=== PATIENT | female | born 1970 | race Caucasian/White ===

== ENCOUNTER 2019-12-03 17:13 | Emergency (ER) | payer SELFPAY ==
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
[2019-12-03] MEDS ORDERED: Lactated Ringers 1,000 ML IV ONE (18:05)
--- NOTE | 2019-12-04 11:02 | CT ---
CT cervical spine Technique: Multiple axial sections through the cervical spine were obtained from above C1 inferiorly to the top of T2. Reconstructed sagittal and coronal images were reviewed. Findings: Disc space narrowing is noted at C3-4, C4-5, C5-6 and C6-7. Anterior osteophytes are seen at C3-4 through C5-6. Posterior osteophytes are noted at C3-4 through C5-6. Neural foramina are felt to be fairly well patent. No central canal stenosis is seen. No acute fracture or subluxation is appreciated. Impression: 1. Mild diffuse degenerative change. 2. Nothing acute is appreciated on CT study of the cervical spine. Diagnostic code #2 This report was dictated in MDT I agree with preliminary report from [facility], finalized on 12/03/19, 8:08 PM Central Daylight Time
--- NOTE | 2019-12-04 11:02 | CT ---
CT chest Technique: Multiple axial sections through the chest were obtained. Intravenous contrast was utilized. Comparison: No prior chest imaging is available. Findings: Mediastinum and hilar regions show no adenopathy or mass. Aorta shows no aneurysm. No mediastinal hematoma is seen. No hilar abnormalities are seen. No pericardial thickening is identified. Soft tissue nodule noted within the medial right lung base measuring 1.3 cm in size. There are negative Hounsfield unit measurements within this area compatible with fat. Lungs otherwise are clear. No pulmonary contusion is appreciated. No pleural effusions or pneumothorax are seen. Bone window settings were reviewed. No acute osseous finding is appreciated. Impression: 1. 1.3 cm nodule within the medial right lung base. This contains some fat and is felt compatible with a benign nodule. I believe no further follow-up is needed. 2. Other normal findings as noted above. Nothing acute is appreciated. Diagnostic code #2 This report was dictated in MDT I agree with preliminary report from [facility], finalized on 12/03/19, 8:[address] abdomen and pelvis Technique: Multiple axial sections were obtained from above the dome of the diaphragm inferiorly through the pubic symphysis. Intravenous contrast was utilized. No oral contrast has been given. Comparison: No prior abdominal imaging is available. Findings: Liver shows 3 small low density findings. Largest lesion is within the dome of the right lobe measuring 8 mm. These are nonspecific by Hounsfield unit measurements but most likely represent liver cysts. Spleen appears normal. Adrenal glands show no nodule. Surgical clips are seen from previous cholecystectomy. Kidneys show symmetric contrast enhancement. Cyst is noted within the mid right kidney measuring 1.6 cm. Aorta shows no aneurysm. No retroperitoneal adenopathy or mesenteric abnormalities are seen. Appendix is seen which is normal. No pelvic mass or adenopathy is noted. No free fluid or inflammatory change is seen within the abdomen or within the pelvis. Bone window settings were reviewed. Spondylitic defects are seen at L5-S1 with no spondylolisthesis being seen at this time. Fat-containing umbilical hernia is noted. No acute osseous finding is appreciated. Impression: 1. Findings as described above. 2. Nothing acute is appreciated on CT study of the abdomen and pelvis. Diagnostic code #2 This report was dictated in MDT I agree with preliminary report from [facility], finalized on 12/03/19, 8:14 PM Central Daylight Time
--- NOTE | 2019-12-04 12:49 | CT ---
Head CT Technique: Multiple axial sections through the brain were obtained. Intravenous contrast was not utilized. Comparison: No prior chest imaging is available. Findings: Ventricles along with basal cisterns and sulci over the convexities appear within normal limits for the patient's age. No abnormal parenchymal densities are seen. No evidence of intracranial hemorrhage. No midline shift or mass-effect is seen. Visualized mastoid sinuses and paranasal sinuses show nothing acute. No acute calvarial finding is seen. Impression: 1. Nothing acute is seen on noncontrast head CT study. Diagnostic code #1 This report was dictated in MDT I agree with preliminary report from [facility], finalized on 12/03/19, 8:04 PM Central Daylight Time
== END 2019-12-03 20:25 | disposition home or self-care (01) ==
LOC: JD.ED 17:13
DX: R51 Headache (principal); R10.10 Upper abdominal pain, unspecified; M54.2 Cervicalgia; E03.9 Hypothyroidism, unspecified; I10 Essential (primary) hypertension; E66.9 Obesity, unspecified; F17.210 Nicotine dependence, cigarettes, uncomplicated; Z68.30 Body mass index [BMI] 30.0-30.9, adult; Z88.5 Allergy status to narcotic agent; Z79.899 Other long term (current) drug therapy; V03.09XA Pedestrian with other conveyance injured in collision with car, pick-up truck or van in nontraffic accident, initial encounter; Y93.01 Activity, walking, marching and hiking; Y92.481 Parking lot as the place of occurrence of the external cause
CPT/HCPCS: 36415; 70450; 71260; 72125; 74177; 80053; 85025; 96360; 99284; J7120